=== PATIENT | female | born 1985 | race Caucasian/White ===

== ENCOUNTER → 2019-06-23 | Outpatient (REF) | payer OTHER ==
[2019-06-23 20:11] LABS: BASO # 0.1 10^3/uL (0.0-0.2); BASO % 1.2 % (0.0-1.0); EOS # 0.2 10^3/uL (0.0-0.50); EOS % 3.5 % (0.0-3.0); HEMATOCRIT 35.7 % (36.0-47.0); HEMOGLOBIN 11.7 g/dl (12.0-15.5); LYMPH # 1.2 10^3/uL (1.5-4.5); LYMPH % 22.9 % (24.0-44.0); MEAN CORPUSCULAR HEMOGLOBIN 28.4 pg (27.0-33.0); MEAN CORPUSCULAR HGB CONC 32.8 g/dl (32.0-36.5); MEAN CORPUSCULAR VOLUME 86.7 fl (80.0-96.0); MONO # 0.4 10^3/uL (0.0-0.8); MONO % 8.1 % (0.0-5.0); NEUTROPHILS # 3.3 10^3/uL (1.8-7.7); NEUTROPHILS % 64.1 % (36.0-66.0); PLATELET COUNT, AUTOMATED 257 10^3/uL (150-450); RED BLOOD COUNT 4.12 10^6/uL (4.00-5.40); WHITE BLOOD COUNT 5.2 10^3/uL (4.0-10.0)
[2019-06-23 20:24] LABS: THYROID STIMULATING HORMONE 0.781 uIU/ML (0.358-3.740)
== END ==
LOC: M SFHCLERA 15:15
PROVIDERS: ATTEND Physician Assistant
DX: N92.1 Excessive and frequent menstruation with irregular cycle (principal); R10.9 Unspecified abdominal pain
CPT/HCPCS: 81025; 82728; 84443; 85025; G0463

== ENCOUNTER → 2019-10-27 | Outpatient (REF) | payer OTHER | LOC: M SFHCLERA 10:12 | PROVIDERS: ATTEND Nurse Practitioner Family | DX: J00 Acute nasopharyngitis [common cold] (principal) ==

== ENCOUNTER 2020-08-13 13:04 | Emergency (ER) | payer OTHER ==
[~2020-08-13] VITALS: Ht 180.3 cm; Wt 62.8 kg
[2020-08-13 14:02] LABS: BASO % 0.4 % (0.0-1.0); EOS # 0.1 10^3/uL (0.0-0.5); EOS % 1.1 % (0.0-3.0); HEMATOCRIT 31.2 % (36.0-47.0); HEMOGLOBIN 10.8 g/dl (12.0-15.5); LYMPH # 0.8 10^3/uL (1.5-5.0); LYMPH % 15.9 % (24.0-44.0); MEAN CORPUSCULAR HEMOGLOBIN 29.3 pg (27.0-33.0); MEAN CORPUSCULAR HGB CONC 34.6 g/dl (32.0-36.5); MEAN CORPUSCULAR VOLUME 84.6 fl (80.0-96.0); MONO # 0.3 10^3/uL (0.0-0.8); MONO % 5.5 % (0.0-5.0); NEUTROPHILS % 76.7 % (36.0-66.0); PLATELET COUNT, AUTOMATED 211 10^3/uL (150-450); RED BLOOD COUNT 3.69 10^6/uL (4.00-5.40); WHITE BLOOD COUNT 5.3 10^3/uL (4.0-10.0)
[2020-08-13] MEDS ORDERED: METOCLOPRAMIDE INJ 10MG/2ML VIAL (J2765 PER 1) IV ONE (14:15)
[2020-08-13] MEDS ORDERED: NS 1,000 ML IV ONE ×2 (14:15)
[2020-08-13 14:47] LABS: ALBUMIN 4.3 GM/DL (3.2-5.2); BILIRUBIN,DIRECT 0.1 MG/DL (0.0-0.2); BILIRUBIN,TOTAL 0.5 MG/DL (0.2-1.0); BLOOD UREA NITROGEN 7 MG/DL (7-18); CALCIUM LEVEL 9.1 MG/DL (8.5-10.1); CARBON DIOXIDE LEVEL 23 MEQ/L (21-32); CHLORIDE LEVEL 106 MEQ/L (98-107); CREATININE FOR GFR 0.39 MG/DL (0.55-1.30); GLOMERULAR FILTRATION RATE > 60.0 (>60); GLUCOSE, FASTING 80 MG/DL (70-100); LIPASE 103 U/L (73-393); POTASSIUM SERUM 3.7 MEQ/L (3.5-5.1); SODIUM LEVEL 136 MEQ/L (136-145); TOTAL PROTEIN 7.5 GM/DL (6.4-8.2)
[2020-08-13 15:38] VITALS: BP 102/62
== END 2020-08-13 15:57 | disposition home or self-care (01) ==
LOC: M ED 13:04
DX: O21.9 Vomiting of pregnancy, unspecified (principal); Z3A.10 10 weeks gestation of pregnancy
CPT/HCPCS: 80048; 80076; 81001; 83690; 85025; 96361; 96374; 99284; J2765

== ENCOUNTER 2021-03-14 13:30 | Inpatient (IN) | payer OTHER ==
[2021-03-14] VITALS (26 sets, daily range): BP systolic 100–128; BP diastolic 56–84
[~2021-03-14] VITALS: Ht 175.3 cm; Wt 77.6 kg
[2021-03-14] MEDS ORDERED: PRENTAB9 PO (13:52)
[2021-03-14] MEDS ORDERED: OXYTOCIN DRIP 30 UNITS in IV 1 EA IV SCH (14:20)
--- NOTE | 2021-03-14 14:44 | HPEPDOC ---
Obstetrical History & Physical General Date of Admission Mar 14, 2021 at 13:30 History of Present Illness 34yo presenting at 40+6 for TOLAC IOL, states irregular cramping and spo tting with wiping today. Chief Complaint: Induction of labor, Occational cramping Information Provided By: Patient Age: 34 : 4 Term: 2 Pre-term: 1 Abortions: 0 Livin Care Care: Good Care Dating Final EDC: Mar 08, 2021 Final EDC for Daily Update: Mar 08, 2021 Final EDC by: LMP LMP: Jun 01, 2020 1st Trimester Date: Aug 05, 2020 EGA at Admission: 40 (+6) Antepartum Course Diagnos(e)s Hx of for placenta previa with bleeding, gestational anemia Height (inches): 69 Pre- weight (lbs.): 130 Admission Weight (lbs.): 170 Change in Weight (lbs.): 41 Past Medical History Past Obstetrical History #1: Past Obstetrical History: Multigravida Date of Delivery: Dec 09, 2009 Gestation: 40 Type of Delivery: Spontaneous Vaginal Del. Complications: No Past Obstetrical History #2: Past Obstetrical History: Multigravida Date of Delivery: Sep 03, 2011 Gestation: 36 (+4) Type of Delivery: Ceserean section Complications: Yes (previa with bleeding) Past Obstetrical History #3: Past Obstetrical History: Multigravida Date of Delivery: Jan 10, 2015 Gestation: 41 Type of Delivery: Spontaneous Vaginal Del. () [employer] History: No pertinent history Past Medical History Medical History placenta previa Surgical History: section Family History Significant Family History: Cancer (father-colon cancer), Diabetes (mgm), Heart disease (father) Social History Marital Status: Psychosocial History: No pertinent psych hx * Smoker: non-smoker Alcohol: Denies Drugs: denies Abuse Violence Screening Have you been hit/kicked/slapp: No Have you been sexually assault: No Imunizations Tdap status: current Influenza Status: current Allergies Coded Allergies: No Known Allergies (Unverified , 08/13/20) Medications Scheduled No.137/Iron/Folic Acd ( Vitamin Tablet) 1 Each Tablet, 1 TAB PO DAILY Physical Examination Physical Examination GENERAL: Alert and oriented times three. BREAST: . ABDOMEN: Gravid and non-tender to touch. FETUS: Is vertex (VTX) by sterile vaginal examination (SVE), fetus is vertex (VTX) by Wade. HEART RATE: Regular rate and rhythm. LUNGS: Clear to auscultation (CTA). EXTREMITIES: No edema. No clonus. Deep tendon reflexes (DTRs) + 2. Vital Signs/I&O Vital Signs Date Time Temp Pulse Resp B/P (MAP) Pulse Ox O2 Delivery O2 Flow Rate FiO2 03/14/21 14:01 98.0 108 20 116/75 (89) Laboratory Data 24H LABS Laboratory Tests 2 03/14/21 13:48: Serology Scanned Report Hepatitis B Testing Pertinent Laboratoy Data Blood Type: O+ RBC Antibody Screen: Negative HIV: Negative Hepatitis B: Negative Rapid Plasma Reagin: Nonreactive Rubella: Immune Varicella: Immune Chlamydia/Gonorrhea: Negative Group B Streptococcus: Negative Cystic Fibrosis: Negative Anatomy Ultrasound Ultrasound Date: Jan 13, 2021 Placenta Location: Anterior Normal Anatomy: Yes (mild renal pelviectasis) Placenta Previa: No Estimated Weight (grams): 2101 Vaginal Examination Dilation: 5 cm Effacement: 70% Station: -3 Cervical Consistency: Soft Cervical Position: Middle Presentation: Cephalic presentation Assessment Heart Rate (FHR): 140 Variability: Moderate Accelerations: Positive Decelerations: None Tocometer Contractions: Yes Frequency: irregular Duration: less than 60 seconds Strength: palpated as moderate Multi-drug resistant Organism: No history of MDRO Assessment/Plan Assessment Jeanne is a 35-year-old (G)4 para (P)2-1-0-3 at 40+6 weeks by 9-week ultrasound. Presents to Labor and Delivery (L&D) for LTG IOL, TOLAC. States irregular cramping since this AM with spotting when wiping Plan Admit and orient. Parent Aide and consent. Reviewed previous consent for TOLAC completed in clinic. Pt states continued desire to TOLAC. Diet: clear liquid. Group B Streptococcus (GBS) negative. Labs and intravenous (IV) per unit protocol. Counseled on Pitocin and induction of labor (IOL). Lactated Ringers (LR): Bolus 1000 mL, then at 125 mL/hr. Anticipate normal spontaneous delivery ()/. C-S as appropriate. DENI FUENTES CNM Mar 14, 2021 14:44
[2021-03-14] MEDS: LR 1,000 ML IV SCH ×2 (14:47→17:55)
[2021-03-14] MEDS ORDERED: LIDOCAINE 1% MDV 20ML VIAL INFIL PRN (14:50)
[2021-03-14] MEDS ORDERED: OXYTOCIN DRIP 30 UNITS in IV 1 EA IV PRN (14:50)
[2021-03-14 15:16] LABS: HEMATOCRIT 31.5 % (36.0-47.0); HEMOGLOBIN 10.5 g/dl (12.0-15.5); MEAN CORPUSCULAR HEMOGLOBIN 28.8 pg (27.0-33.0); MEAN CORPUSCULAR HGB CONC 33.3 g/dl (32.0-36.5); MEAN CORPUSCULAR VOLUME 86.3 fl (80.0-96.0); PLATELET COUNT, AUTOMATED 179 10^3/uL (150-450); RED BLOOD COUNT 3.65 10^6/uL (4.00-5.40); WHITE BLOOD COUNT 8.3 10^3/uL (4.0-10.0)
--- NOTE | 2021-03-14 17:39 | IPNPDOC ---
Text Note Date of Service The patient was seen on 03/14/21. NOTE 1730 HOURS ASSESSMENT 35 YO HISTORY CS FOR PLACENTA PREVIA AND ANEMIA,, X2 PELVIS TESTED TO 8 LBS, STARTED ON PITOCIN AT 2 MUNITS OCCASIONAL LATE WITH RECOVERY. HYDRATE AND POSITION NOW CATEGORY 1 SAFE TO INCREASE PITOCIN. PELVIC EXAM INTERNAL OS 3 CM 50 % EFFACED THICK POSTERIOR , PLANNED EPIDURAL, HEARTBURN [place]A ORDERED VS,Fishbone, I+O VS, Fishbone, I+O Laboratory Tests 03/14/21 15:01 Vital Signs Date Time Temp Pulse Resp B/P (MAP) Pulse Ox O2 Delivery O2 Flow Rate FiO2 03/14/21 14:01 98.0 108 20 116/75 (89) Raul Maxwell MD Mar 14, 2021 17:39
[2021-03-14] MEDS ORDERED: MAALOX 30 ML SUSP *UDC PO PRN (17:40)
[2021-03-14] MEDS ORDERED: FENTANYL 2MCG/ML ROPIVACAINE 0.2% IN 0.9% NACL 100ML IVBAG As Ordered ONE (18:34)
[2021-03-14] MEDS ORDERED: EPIDURAL/PCA KEYS XX PRN (20:50)
[2021-03-14] MEDS ORDERED: LACTATED RINGER'S 1000 ML IV PRN (20:50)
[2021-03-14] MEDS ORDERED: ePHEDrine SULFATE 25 MG/5 ML(5MG/ML) SYRINGE IV PRN (20:50)
[2021-03-14] MEDS ORDERED: NALOXONE INJ 0.4MG/1ML VIAL (J2310 PER 1MG) IV PRN (20:50)
[2021-03-14] MEDS ORDERED: ONDANSETRON 4MG/2ML VIAL IV PRN (20:50)
[2021-03-14] MEDS ORDERED: FENTANYL/ROPIVACAINE/NACL BAG 100 ML EPIDURAL SCH (20:50)
[2021-03-14] MEDS ORDERED: diphenhydrAMINE 50MG/ML VIAL (J1200) IV PRN (20:50)
[2021-03-14] MEDS ORDERED: EPIDURAL COMMENT XX SCH (20:50)
[2021-03-14] MEDS ORDERED: REFRIGERATOR IV KEYS XX PRN (20:50)
[2021-03-14] MEDS ORDERED: OXYTOCIN INJ 10 UNITS/ML VIAL (J2590) As Ordered ONE (21:27)
[2021-03-14 22:05] LABS: CORD GAS ABE A -2.9; CORD GAS HCO3 A 23.2 MEQ/L; CORD GAS O2 SAT A 33.9 %; CORD GAS PCO2 A 45.7 mmHg; CORD GAS PH A 7.324 UNITS; CORD GAS PO2 A 17.7 mmHg; CORD GAS SBC A 20.6 MEQ/L; CORD GAS TCO2 A 24.6 MEQ/L
[2021-03-14 22:06] LABS: CORD GAS ABE V -1.3; CORD GAS HCO3 V 22.2 MEQ/L; CORD GAS O2 SAT V 59.1 %; CORD GAS PCO2 V 33.7 mmHg; CORD GAS PH V 7.436 UNITS; CORD GAS PO2 V 23.9 mmHg; CORD GAS SBC V 22.5 MEQ/L; CORD GAS TCO2 V 23.2 MEQ/L
[2021-03-14] MEDS ORDERED: MOM 30ML SUSPENSION UDC PO PRN (22:25)
[2021-03-14] MEDS ORDERED: DIBUCAINE 1% OINTMENT 30GM TOP PRN (22:25)
[2021-03-14] MEDS ORDERED: OXYTOCIN INJ 10 UNITS/ML VIAL (J2590) IV ONE (22:25)
[2021-03-14] MEDS ORDERED: ACETAMINOPHEN 500 MG TAB PO PRN (22:25)
[2021-03-14] MEDS ORDERED: RHOGAM 300 MCG (1500 IU) INJ (J2790) IM SCH (22:25)
[2021-03-14] MEDS ORDERED: MEASLES,MUMPS,RUBELLA VACCINE INJ (MMR-II) (90707) SC SCH (22:25)
[2021-03-14] MEDS ORDERED: IBUPROFEN 600MG TAB PO PRN (22:25)
[2021-03-14] MEDS ORDERED: METHYLERGONOVINE MALEATE 0.2 MG TAB PO PRN (22:25)
[2021-03-14] MEDS ORDERED: ACETAMINOPHEN TAB 650MG DOSE (2X325MG) PO PRN (22:25)
[2021-03-14] MEDS: OXYTOCIN DRIP 30 UNITS in IV 1 EA IV SCH (22:25)
[2021-03-14] MEDS ORDERED: ANUSOL HC CREAM 30GM TOP PRN (22:25)
--- NOTE | 2021-03-14 22:48 | DNPDOC ---
[facility] Delivery Note Delivery Note Item Value Date Time Cord Arterial Blood pH 7.324 UNITS 03/14/212144 Cord Arterial Blood PCO2 45.7 mmHg 03/14/212144 Cord Arterial Blood PO2 17.7 mmHg 03/14/212144 Cord Arterial Blood HCO3 23.2 MEQ/L 03/14/212144 Cord Arterial Blood Total CO2 24.6 MEQ/L 03/14/212144 Cord Arterial Blood Base Excess -2.9 03/14/212144 Cord Arterial Base Excess (Standard 20.6 MEQ/L 03/14/212144 Cord Arterial Bld Oxygen Saturation 33.9 % 03/14/212144 Cord Venous Blood pH 7.436 UNITS 03/14/212154 Cord Venous Blood PCO2 33.7 mmHg 03/14/212154 Cord Venous Blood PO2 23.9 mmHg 03/14/212154 Cord Venous Blood HCO3 22.2 MEQ/L 03/14/212154 Cord Venous Blood Total CO2 23.2 MEQ/L 03/14/212154 Cord Venous Base Excess (Actual) -1.3 03/14/212154 Cord Venous Base Excess (Standard) 22.5 MEQ/L 03/14/212154 Cord Venous Blood Oxygen Saturation 59.1 % 03/14/212154 Item Value Date Time White Blood Count 8.3 10^3/uL 03/14/21 1501 Red Blood Count 3.65 10^6/uL L 03/14/21 1501 Hemoglobin 10.5 g/dl L 03/14/21 1501 Hematocrit 31.5 % L 03/14/21 1501 Mean Corpuscular Hemoglobin 28.8 pg 03/14/21 1501 Mean Corpuscular Volume 86.3 fl 03/14/21 1501 Mean Corpuscular Hemoglobin Concent 33.3 g/dl 03/14/21 1501 Red Cell Distribution Width 13.6 % 03/14/21 1501 Platelet Count 179 10^3/uL 03/14/21 1501 Nucleated Red Blood Cells % (auto) 0.0 % 03/14/21 1501 Vital Signs Label Value Date Time Blood Pressure Assessment 119/72 (88) 03/14/212200 Source Automatic Cuff (NIBP) Pulse 74 03/14/212200 Pulse 72 03/14/212145 Blood Pressure Assessment 111/56 (74) 03/14/212145 Source Automatic Cuff (NIBP) Pulse 76 03/14/212131 Blood Pressure Assessment 120/70 (87) 03/14/212131 Source Automatic Cuff (NIBP) Blood Pressure Assessment 102/59 (73) 03/14/212120 Source Automatic Cuff (NIBP) Pulse 74 03/14/212120 Pulse 66 03/14/212099 Blood Pressure Assessment 100/58 (72) 03/14/212099 Source Automatic Cuff (NIBP) Pulse 73 03/14/212045 Blood Pressure Assessment 103/59 (74) 03/14/212045 Source Automatic Cuff (NIBP) DATE OF DELIVERY: 03/14/2021 PREDELIVERY DIAGNOSIS: 40.6 weeks' gestation and labor. POST DELIVERY DIAGNOSIS: delivery PROCEDURE: [Spontaneous vaginal delivery tolac HAND UPPER AND BOTTOM LACER: Dr. GARY ANESTHESIA: .EPIDURAL ESTIMATED BLOOD LOSS: 200 mL. FINDINGS: 9 pound 0 ounce MALE , Score 9/9 nuchal cord times 0 DELIVERY SUMMARY: Patient is a 35year-old 4 now para 4 who was admitted to labor and delivery for iol on 03/14/2021, IOL WITH PITOCIN REQUESTED EPIDURAL RAPIDLY PROGRESSED TO FULLY SROM AT DELIVERY CLEAR FLUID, MALE 9 LBS 0 OZ, 4070 GRAMS PLACENTA COMPLETE 1 DEGREE TEAR REPAIRED 2-0 VICRYL U TERUS CONTRACTED DOWN WITH PITOCIN. VAGINAL MENDES CERVIX AND SPHINCTER INTACT .SUCCESSFUL Raul Maxwell MD Mar 14, 2021 22:45
[2021-03-15 00:10] VITALS: BP 121/65
[2021-03-15] MEDS: DOCUSATE SODIUM 100MG CAPSULE PO PRN ×2 (00:46→19:59)
[2021-03-15] MEDS: IBUPROFEN 800 MG TAB PO PRN ×2 (00:46→07:51)
[2021-03-15 05:55] VITALS: BP 115/56
[2021-03-15] MEDS: OXYTOCIN DRIP 30 UNITS in IV 1 EA IV SCH ×2 (06:25→07:22)
[2021-03-15] MEDS: PRENATAL VITAMINS CHEWABLE TABLET PO SCH (07:36)
--- NOTE | 2021-03-15 07:42 | IPNPDOC ---
Progress Note Date of Service: March 15, 2021 Day#: 1 Progress Note SUBJECT: 35year-old 4 now Para 4 status post uncomplicated spontaneous vaginal delivery, at 40.6 weeks' at approximately on 03/14/21 of a male 9 pounds 0 ounces 4070 grams) with post vaginal laceration and repair, doing well day # 1 . She has been ambulating, voiding spontaneously without issue and tolerating regular diet. Breast feeding without issue. Reports lochia is [like a normal period]. Patient is ambulating well. [Reports some cramping with . Denies any pain. Voiding and stooling without difficulty]. OBJECTIVE: VITAL SIGNS: Within normal limits, afebrile. Alert and oriented times three. Breath sounds clear to auscultation. Heart rate: Regular rate and rhythm, no murmurs, rubs or gallops. Abdomen: Fundus firm at U-2. Soft, NTTP. [Minimal] lochia. ASSESSMENT: 35 -year-old 4 now Para 4 status post uncomplicated spontaneous vaginal delivery after presenting iol with spontaneous rupture of membranes (SROM), delivered 40.6 weeks', doing well on day 1 . Vitals within normal limits, afebrile, hemodynamically stable with no evidence of infection. PLAN: 1. Discharge to home tomorrow 2. Tylenol and Motrin for pain. 3. Encourage breast feeding and ambulation. 4. vasectomy 5. Routine PP visit in 6 weeks in clinic. 6. Discussed return precautions at length. VS, I&O, [facility], [facility] Vital Signs/I&O Vital Signs Date Time Temp Pulse Resp B/P (MAP) Pulse Ox O2 Delivery O2 Flow Rate FiO2 03/15/21 05:55 98.3 70 18 115/56 (75) I&O- Last 24 Hours up to 6 AM 03/15/21 06:00 Intake Total 2258.9 ml Output Total 2385 ml Balance -126.1 ml Laboratory Data 24H LABS Laboratory Tests 2 03/14/21 13:48: Serology Scanned Report Hepatitis B Testing 03/14/21 15:01: Nucleated Red Blood Cells % (auto) 0.0, Syphilis Serology NONREACTIVE 03/14/21 21:45: Cord Arterial Blood pH 7.324, Cord Arterial Blood PCO2 45.7, Cord Arterial Blood PO2 17.7, Cord Arterial Blood HCO3 23.2, Cord Arterial Blood Total CO2 24.6, Cord Arterial Blood Base Excess -2.9, Cord Arterial Base Excess (Standard 20.6, Cord Arterial Bld Oxygen Saturation 33.9 03/14/21 21:55: Cord Venous Blood pH 7.436, Cord Venous Blood PCO2 33.7, Cord Venous Blood PO2 23.9, Cord Venous Blood HCO3 22.2, Cord Venous Blood Total CO2 23.2, Cord Venous Base Excess (Actual) -1.3, Cord Venous Base Excess (Standard) 22.5, Cord Venous Blood Oxygen Saturation 59.1 CBC/BMP Laboratory Tests 03/14/21 15:01 Raul Maxwell MD March 15, 2021 07:41
[2021-03-15 08:09] LABS: HEMATOCRIT 29.1 % (36.0-47.0); HEMOGLOBIN 9.8 g/dl (12.0-15.5); MEAN CORPUSCULAR HEMOGLOBIN 29.7 pg (27.0-33.0); MEAN CORPUSCULAR HGB CONC 33.7 g/dl (32.0-36.5); MEAN CORPUSCULAR VOLUME 88.2 fl (80.0-96.0); PLATELET COUNT, AUTOMATED 176 10^3/uL (150-450); WHITE BLOOD COUNT 13.3 10^3/uL (4.0-10.0)
[2021-03-15 17:50] VITALS: BP 116/54
[2021-03-16 05:59] VITALS: BP 102/55
[2021-03-16] MEDS: PRENATAL VITAMINS CHEWABLE TABLET PO SCH (07:51)
--- NOTE | 2021-03-16 09:07 | OBDS ---
[facility] Obstetrical Discharge Sum. Obstetrical Discharge Summary Date: March 16, 2021 : 4 Term: 3 Pre-term: 1 Abortions: 0 Livin VDRL: ABO Blood Group (o) Rh: Positive Rubella: Immune Labor LTG IOL TOLAC, uncomplicated Delivery Spontaneous , uncomplicated Infant Sex: Male Weight: pounds (9), ounces (0) Anesthesia: Regional Anesthesia Episiotomy first degree midline laceration A/P, Post Course List any complications Admission diagnosis: LTG IOL. Discharge diagnosis: day 2 Condition at Discharge: stable Discharge Instructions: Home Activity: ad tarah Diet: reg Medications: @king Follow-up: 6wk pp Other: reviewed options for control coverage until Vasectomy is complete DENI FUENTES CNM March 16, 2021 09:07
--- NOTE | 2021-03-17 10:44 | IPN ---
PROGRESS NOTE DATE: 03/14/2021 SUBJECTIVE: This patient and requested circumcision of their male . After discussing risks and benefits of circumcision, the medical, the nonmedical indications, the penile block and aftercare, they expressed understanding of penile block aftercare and bleeding, signed the consent form. All questions were answered. Twenty minute discussed. We await clearance by the alternative energy engineer. cc: Payton LAGUNAS
== END 2021-03-16 11:20 | disposition home or self-care (01) | DRG 807 ==
LOC: M LDI 13:30 → M OBS 03-15
PROVIDERS: ADMIT Registered Nurse; ATTEND Obstetrics & Gynecology
PROC: 10E0XZZ Delivery of Products of Conception, External Approach (ICD-10-PCS; principal; 2021-03-14)
PROC: 3E033VJ Introduction of Other Hormone into Peripheral Vein, Percutaneous Approach (ICD-10-PCS; 2021-03-14)
PROC: 0HQ9XZZ Repair Perineum Skin, External Approach (ICD-10-PCS; 2021-03-14)
DX: O34.219 Maternal care for unspecified type scar from previous cesarean delivery (principal); Z37.0 Single live birth; O48.0 Post-term pregnancy; Z3A.40 40 weeks gestation of pregnancy; O70.0 First degree perineal laceration during delivery